=== PATIENT | male | born 1980 | race American Indian/Alaskan Native ===

== ENCOUNTER 2021-11-15 15:10 | Inpatient (IN) ==
--- NOTE | 2021-11-15 15:25 | Emergency Department Note ---
HPI General Chief complaint: Blood Sugar Problem Stated complaint: DKA Time Seen by Provider: 11/15/21 15:25 Source: patient Mode of arrival: ambulatory Limitations: no limitations History of Present Illness HPI Narrative: 41-year-old male with past medical history of chronic pancreatitis, type 2 diabetes, and hypertension presenting with abdominal pain, nausea, and vomiting. Over the last 3 days patient has had multiple episodes of vomiting with diffuse abdominal cramping and some diarrhea. He has a history of type 2 diabetes and is supposed to be on Lantus and short acting insulin but has not been taking it regularly. He has not checked his blood sugar recently. No fever, cough, chest pain, shortness of breath, dysuria, hematuria, or melena. Patient states he has been in DKA in the past. Family reports he was supposed to have surgery to remove his pancreas given his pancreatic insufficiency but has not been able to get the surgery because of Covid. No sick contacts or recent travel. Related Data Home Medications Medication Instructions Recorded Confirmed insulin aspart U-100 100 unit/mL See Protocol SQ 09/28/18 subcutaneous solution (Novolog U-100 Insulin aspart) insulin glargine 100 unit/mL 12 units SQ DAILY 09/28/18 09/28/18 subcutaneous solution (Lantus U-100 Insulin) [id number] 2 ea PO TID 09/28/18 09/28/18 12,000-38,000-60,000 unit capsule,delayed rel (Creon) Previous Rx's Medication Instructions Recorded hydrocodone 5 mg-acetaminophen 325 1 tab PO Q4-6HP PRN #14 tab 09/30/18 mg tablet ondansetron 8 mg disintegrating 8 mg PO Q8HP PRN #30 tab.rapdis 09/30/18 tablet potassium, sodium phosphates 280 1 packet PO BID #10 packet 09/30/18 mg-160 mg-250 mg oral powder packet methocarbamol 750 mg tablet 750 mg PO TIDP PRN #45 tab 05/11/20 Allergies Allergy/AdvReac Type Severity Reaction Status Date / Time No Known Drug Allergies Allergy Verified 05/11/20 16:28 Review of Systems ROS ROS Narrative: Narrative: Constitutional: Denies fever or chills Eyes: Denies vision change ENT ED: Denies throat pain Cardiovascular: Denies chest pain or palpitations Respiratory: Denies shortness of breath or cough Gastrointestinal: Reports abdominal pain, nausea, vomiting and diarrhea; Denies melena Genitourinary: Denies dysuria or frequency Musculoskeletal: Denies back pain or joint swelling Integumentary: Denies rash Neurological: Denies headache Psychiatric: Denies anxiety Endocrine: Reports fatigue Hematological/Lymphatic: Denies easy bleeding PFSH Narrative Patient History Narrative: Narrative: Medical/Surgical/Family History All Active Problems (Updated 11/15/21 @ 17:42 by Ady Connolly MD) Contusion of hip, right (Acute) Felon of finger of right hand (Acute) Hyperglycemia (Acute) Hyperosmolar hyperglycemic state (HHS) (Acute) ORLIN (acute kidney injury) (Acute) Leukocytosis (Acute) Chronic pancreatitis (Chronic) Other specified diabetes mellitus without complications (Chronic) Hypertension (Chronic) Exocrine pancreatic insufficiency (Chronic) Medical History (Updated 11/15/21 @ 17:42 by Ady Connolly MD) Chronic pancreatitis DKA (diabetic ketoacidoses) Exocrine pancreatic insufficiency Hypertension Other specified diabetes mellitus without complications Social History Smoking Status: Current every day smoker Exam Narrative Narrative: Narrative: General Limitations: no limitations General appearance: Present alert and other (Appears uncomfortable) Head Head: Present atraumatic and normocephalic Eye Eye: Present normal appearance, PERRL and EOMI; Absent scleral icterus or conjunctival injection ENT ENT: Present mucous membranes dry and other (Poor dentition) Neck Neck: Present normal inspection, full ROM and trachea midline Chest Chest: Present symmetric chest wall rise Respiratory Respiratory: Present normal lung sounds bilaterally; Absent respiratory distress, wheezes, stridor, accessory muscle use or prolonged expiratory phase Cardiovascular Cardiovascular: Present regular rate and normal rhythm; Absent systolic murmur or diastolic murmur Adbominal Abdominal: Present soft and tenderness (Mild diffuse tenderness to palpation); Absent distention, guarding, rebound, rigidity, organomegaly or mass Extremities Extremities: Present normal inspection and full ROM; Absent pretibial edema Back Back: Absent CVA tenderness (R) or CVA tenderness (L) Neurological Neurological: Present alert, oriented X3 and CN II-XII intact; Absent motor sensory deficit Psychiatric Psychiatric: Present normal affect and normal mood Skin Skin: Present warm (WNL) and dry Course Consultations Consultation #1: Dr Loomis, hospitalist Time: 17:36 Vital Signs Vital signs: Vital Signs Temperature 95.1 F L 11/15/21 15:11 Pulse Rate 100 H 11/15/21 15:11 Respiratory Rate 22 11/15/21 15:11 Blood Pressure 102/65 11/15/21 15:11 Pulse Oximetry (%) 97 11/15/21 15:11 Temperature 95.1 F L 11/15/21 15:11 Pulse Rate 95 H 11/15/21 17:11 Respiratory Rate 22 11/15/21 15:11 Blood Pressure 129/83 11/15/21 17:15 Pulse Oximetry (%) 100 11/15/21 17:11 MDM MDM Narrative Medical decision making narrative: 41-year-old male presenting with nausea and vomiting. Initial glucose was greater than 600. Vital signs are stable. EKG shows no ischemic changes. Concern for dehydration and hyperglycemia versus DKA. Normal saline bolus ordered. Will obtain labs, chest x-ray, and UA. Labs notable for hyperglycemia to 1064, ORLIN, pH of 7.01, and lactate of 3.4. This is consistent with HHS/DKA. Potassium was high at 5.4. His bicarb is 5 and anion gap is 47. Ketones are 9.5. He does have a white blood cell count to 20.4. Patient was given 2 L normal saline, 10 units of IV insulin and started on insulin drip at 8 units/h. Given his abdominal pain and elevated white blood cell count, CT without contrast is ordered. His UA is pending. I discussed the patient with hospitalist Dr. Loomis for likely admission to the ICU pending his CT and UA results. Patient signed out to oncoming MD Dr. Echavarria. Lab Data Lab results reviewed: Yes I reviewed the patient's lab results. Result diagrams: 11/15/21 15:32 11/15/21 15:32 Labs: Lab Results 11/15/21 11/15/21 11/15/21 Range/Units 15:32 15:32 15:32 WBC 20.4 H (4.5-11.0) K/mcL RBC 5.89 (4.63-6.08) M/mcL Hgb 17.5 (13.7-17.5) g/dL Hct 56.3 H (40.1-51.0) % MCV 95.6 (80.0-100.0) fL MCH 29.7 (26.0-34.0) pg MCHC 31.1 (31.0-36.0) g/dL RDW 12.2 (11.5-14.5) % Plt Count 421 (140-440) K/mcL MPV 9.8 (7.4-10.4) fL Neut % (Auto) 88.7 H (38.0-78.0) % Lymph % (Auto) 4.9 L (15.5-49.0) % Maries % (Auto) 6.2 (1.0-12.0) % Eos % (Auto) 0 (0.0-7.0) % Baso % (Auto) 0.2 (0.0-2.0) % Lymph # (Auto) 1.00 L (1.50-4.80) K/mcL [place]ies # (Auto) 1.26 H (0.10-0.90) K/mcL Eos # (Auto) 0 (0.00-0.70) K/mcL Baso # (Auto) 0.05 (0.00-0.30) K/mcL Absolute Neutrophils 18.11 H (1.80-8.00) K/mcL ABG Methemoglobin (0.4-1.5) % VBG pH (7.32-7.42) U VBG pCO2 (41.0-51.0) mmHg VBG pO2 (25.0-40.0) mmHg VBG HCO3 (24.0-28.0) mmol/L VBG Total CO2 (25.0-29.0) mmol/L VBG O2 Saturation (40.0-70.0) % VBG Base Excess (-2-2) VBG Lactic Acid (0.5-2.0) mmol/L Carboxyhemoglobin (0.0-1.5) % THgb Total Hemoglobin (13.5-16.5) gm/Dl Sodium 126 L (133-145) mmol/L Potassium 5.4 H (3.3-5.1) mmol/L Chloride 74 L (96-108) mmol/L Carbon Dioxide 5 L* (22-30) mmol/L Anion Gap 47.0 H (8.0-16.0) BUN 60 H (6-20) mg/dL Creatinine 2.4 H (0.7-1.2) mg/dL GFR Calculation 32 Glucose 1064 H* (70-105) mg/dL Calcium 9.4 (8.6-10.4) mg/dL Magnesium 3.5 H (1.6-2.5) mg/dL Total Bilirubin 0.4 (0.1-1.0) mg/dL AST 17 (<40) U/L ALT 19 (<40) U/L Alkaline Phosphatase 180 H (39-117) U/L Total Protein 8.2 (5.9-8.4) gm/dL Albumin 4.4 (3.2-5.2) gm/dL Globulin 3.8 H (2.2-3.7) gm/dL Albumin/Globulin Ratio 1.2 (1.0-2.3) Lipase 471 H (7-60) U/L Beta-Hydroxybutyrate 9.57 H (<0.27) mmol/L 11/15/21 11/15/21 Range/Units 16:00 16:00 WBC (4.5-11.0) K/mcL RBC (4.63-6.08) M/mcL Hgb (13.7-17.5) g/dL Hct (40.1-51.0) % MCV (80.0-100.0) fL MCH (26.0-34.0) pg MCHC (31.0-36.0) g/dL RDW (11.5-14.5) % Plt Count (140-440) K/mcL MPV (7.4-10.4) fL Neut % (Auto) (38.0-78.0) % Lymph % (Auto) (15.5-49.0) % Maries % (Auto) (1.0-12.0) % Eos % (Auto) (0.0-7.0) % Baso % (Auto) (0.0-2.0) % Lymph # (Auto) (1.50-4.80) K/mcL Maries # (Auto) (0.10-0.90) K/mcL Eos # (Auto) (0.00-0.70) K/mcL Baso # (Auto) (0.00-0.30) K/mcL Absolute Neutrophils (1.80-8.00) K/mcL ABG Methemoglobin 0.1 L (0.4-1.5) % VBG pH 7.01 L* (7.32-7.42) U VBG pCO2 19.5 L* (41.0-51.0) mmHg VBG pO2 76.9 H (25.0-40.0) mmHg VBG HCO3 4.8 L* (24.0-28.0) mmol/L VBG Total CO2 5.4 L* (25.0-29.0) mmol/L VBG O2 Saturation 88.8 H (40.0-70.0) % VBG Base Excess -25 L (-2-2) VBG Lactic Acid 3.4 H (0.5-2.0) mmol/L Carboxyhemoglobin 3.4 H (0.0-1.5) % THgb Total Hemoglobin 16.3 (13.5-16.5) gm/Dl Sodium (133-145) mmol/L Potassium (3.3-5.1) mmol/L Chloride (96-108) mmol/L Carbon Dioxide (22-30) mmol/L Anion Gap (8.0-16.0) BUN (6-20) mg/dL Creatinine (0.7-1.2) mg/dL GFR Calculation Glucose (70-105) mg/dL Calcium (8.6-10.4) mg/dL Magnesium (1.6-2.5) mg/dL Total Bilirubin (0.1-1.0) mg/dL AST (<40) U/L ALT (<40) U/L Alkaline Phosphatase (39-117) U/L Total Protein (5.9-8.4) gm/dL Albumin (3.2-5.2) gm/dL Globulin (2.2-3.7) gm/dL Albumin/Globulin Ratio (1.0-2.3) Lipase (7-60) U/L Beta-Hydroxybutyrate (<0.27) mmol/L Radiology Data Radiology results reviewed: Yes I reviewed the patient's radiology results. Radiology results narrative: Ordering Physician:Ady Connolly M.D. Date of Service:11/15/21 Procedure(s):XR chest 1V portable CLINICAL INFORMATION: Diabetic ketoacidosis COMPARISON: None. TECHNIQUE: PA and Lateral views FINDINGS: The heart size, mediastinum and pulmonary vessels are unremarkable. The lungs are clear. There are no effusions. The bones and soft tissues are within normal limits. IMPRESSION: Normal chest. Interpreted and Authenticated by: Pietro Martínez 11/15/21 EKG Data EKG #1: EKG attestation: Yes I reviewed and interpreted this EKG. and Yes There are no EKG findings of acute coronary syndrome EKG results narrative: Normal sinus rhythm at 95 bpm. Early repolarization present, no ST elevation or depression. Interpretation: no acute changes CC TIME Critical Care Time Critical Care Time: Yes Total Critical Care Time: 45 Attestation: I spent greater than 45 minutes of critical care time evaluating and treating this patient, excluding time for procedures. His critical care time was necessary to prevent life-threatening HHS/DKA. Discharge Plan Patient/Caregiver Discharge Instructions Pt seen by [facility] [facility] [employer]/PA only: No Clinical Impression: Hyperosmolar hyperglycemic state (HHS), ORLIN (acute kidney injury), Leukocytosis Patient Disposition: Xfer As Inpt (TS) Condition: Critical Follow up with: Provider,Other [Primary Care Provider] - Prescriptions: No Action insulin glargine [Lantus U-100 Insulin] 1 UNIT/0.01 ML Unit 12 units SQ DAILY 0RF insulin aspart U-100 [Novolog U-100 Insulin aspart] 100 UNIT/ML Vial See Protocol unit SQ 0RF Protocol: Insulin Sliding Scale, Med Condition: HUMALOG/NOVALOG SC SLIDING Dose/Route: SCALE Condition: FSBS < 70 Dose/Route: Give 4 Oz juice, or 15gm oral Instruction: Glucose, or 25ml D50W IV if Dose/Route: unable to take PO. Recheck in Instruction: 15 min and repeat if FSBS < 70 Condition: FSBS 71-140 Dose/Route: NO COVERAGE Condition: FSBS 141-170 Dose/Route: 2 UNITS Condition: FSBS 171-200 Dose/Route: 4 UNITS Condition: FSBS 201-250 Dose/Route: 6 UNITS Condition: FSBS 251-300 Dose/Route: 8 UNITS Condition: FSBS 301-350 Dose/Route: 10 UNITS Condition: FSBS 351-400 Dose/Route: 12 UNITS Condition: FSBS > 400 Dose/Route: 14 UNITS; REPEAT Q2H X2 Instruction: CONTINUE FOLLOWING SLIDING Condition: SCALE; IF STILL > 400; CALL Dose/Route: PHYSICIAN Rx Instructions: per sliding scale [id number]-tmsoeoxm-lcnngbo [Creon] [address] E[address]aps[address] 2 ea PO TID 0RF ondansetron 8 MG tablet,disintegrating 8 mg PO Q8HP PRN (Reason: Nausea) Qty: 30 0RF hydrocodone-acetaminophen 1 TAB tablet 1 tab PO Q4-6HP PRN (Reason: Pain) Qty: 14 0RF potassium, sodium phosphates 1 PACKET packet 1 packet PO BID Qty: 10 0RF methocarbamol 750 MG tablet 750 mg PO TIDP PRN (Reason: muscle spasms) Qty: 45 0RF Rx Instructions: if needed increase to 1.5 or 2 tabs per dose.
[2021-11-15] MEDS ORDERED: 0.9 % SODIUM CHLORIDE 1,000 ML IV ONE ×2 (15:32→16:56)
[2021-11-15] MEDS ORDERED: morphine 4 MG/ML VIAL IV ONE (15:32)
[2021-11-15] MEDS ORDERED: ONDANSETRON 4 MG/2 ML VIAL IV ONE (15:32)
--- NOTE | 2021-11-15 16:20 | XRay Report ---
CLINICAL INFORMATION: Diabetic ketoacidosis COMPARISON: None. TECHNIQUE: PA and Lateral views FINDINGS: The heart size, mediastinum and pulmonary vessels are unremarkable. The lungs are clear. There are no effusions. The bones and soft tissues are within normal limits. IMPRESSION: Normal chest. Interpreted and Authenticated by: Pietro Martínez 11/15/21
[2021-11-15 16:25] LABS: Basophils # (Auto) 0.05 K/mcL (0.00-0.30); Basophils % (Auto) 0.2 % (0.0-2.0); Eosinophils # (Auto) 0 K/mcL (0.00-0.70); Eosinophils % (Auto) 0 % (0.0-7.0); Hematocrit 56.3 % (40.1-51.0); Hemoglobin 17.5 g/dL (13.7-17.5); Lymphocytes % (Auto) 4.9 % (15.5-49.0); Mean Cell Volume 95.6 fL (80.0-100.0); Mean Corpuscular HGB Conc 31.1 g/dL (31.0-36.0); Mean Platelet Volume 9.8 fL (7.4-10.4); Monocytes # (Auto) 1.26 K/mcL (0.10-0.90); Monocytes % (Auto) 6.2 % (1.0-12.0); Neutrophils % (Auto) 88.7 % (38.0-78.0); Platelet Count 421 K/mcL (140-440); RBC 5.89 M/mcL (4.63-6.08); Red Cell Distribution Width 12.2 % (11.5-14.5); WBC 20.4 K/mcL (4.5-11.0)
[2021-11-15 16:32] LABS: ABG Methemoglobin 0.1 % (0.4-1.5); Total Hemoglobin 16.3 gm/Dl (13.5-16.5); VBG Base Excess -25 (-2-2); VBG HCO3 4.8 mmol/L (24.0-28.0); VBG Oxygen Saturation 88.8 % (40.0-70.0); VBG PCO2 19.5 mmHg (41.0-51.0); VBG PH 7.01 U (7.32-7.42); VBG PO2 76.9 mmHg (25.0-40.0); VBG Total CO2 5.4 mmol/L (25.0-29.0)
[2021-11-15 17:01] LABS: ALT/SGPT 19 U/L (<40); AST/SGOT 17 U/L (<40); Albumin 4.4 gm/dL (3.2-5.2); Albumin/Globulin Ratio 1.2 (1.0-2.3); Alkaline Phosphatase 180 U/L (39-117); Bilirubin,Total 0.4 mg/dL (0.1-1.0); Blood Urea Nitrogen 60 mg/dL (6-20); Calcium 9.4 mg/dL (8.6-10.4); Carbon Dioxide 5 mmol/L (22-30); Chloride 74 mmol/L (96-108); Globulin 3.8 gm/dL (2.2-3.7); Glomerular Filtration Rate 32; Glucose 1064 mg/dL (70-105)
[2021-11-15] MEDS ORDERED: INSULIN REGULAR, HUMAN 1 UNIT/0.01 ML UNIT IV ONE ×2 (17:05→21:11)
[2021-11-15 17:29] LABS: Beta Hydroxybutyrate 9.57 mmol/L (<0.27)
[2021-11-15] MEDS: INSULIN REGULAR, HUMAN 50 UNIT in 0.9 % SODIUM CHLORIDE 99.5 ML IV SCH ×2 (17:55→23:39)
--- NOTE | 2021-11-15 18:39 | Cat Scan Report ---
CLINICAL INFORMATION: Abdominal pain and leukocytosis. COMPARISON: None. TECHNIQUE: 0.625 mm helical slices were obtained from the mid heart through the subtrochanteric regions. Following reconstruction, 2.5 mm sagittal, coronal and axial reformatted images were processed and reviewed at bone and soft tissue windows.The exam was performed using radiation dose optimization techniques including, but not limited to, automated exposure control, adjustment of the mA and/or kV according to patient size and use of iterative reconstruction technique. FINDINGS: The lung bases are clear. No effusions. The visualized heart is grossly normal. Abdominal images show the gallbladder is surgically absent. The bile ducts, liver, both kidneys, adrenal glands, spleen, and aorta, are normal in size, configuration and attenuation without focal lesion. There appears be mild inflammatory stranding of peripancreatic fat in the body and tail region which could indicate pancreatitis. Visualization is limited without use of intravenous contrast. There is no free air, free fluid or adenopathy. Pelvic images show normal noncontrasted urinary bladder. Prostate seminal vesicles are unremarkable. The stomach, small bowel, appendix region and large bowel are grossly normal. Bone windows show no osseous abnormality. IMPRESSION: Findings suggestive of simple acute interstitial pancreatitis involving the body and tail. Please correlate amylase and lipase. There is no necrosis, abscess or other complication. Interpreted and Authenticated by: Pietro Martínez 11/15/21
--- NOTE | 2021-11-15 19:22 | Internal Med History&Physical ---
HPI History of Present Illness Patient information: Note initiated : 11/15/21 at 7:01 pm Service Date, if different from initiated Date: [] Patient: Tashi Ruiz a 41 y/o M admitted on for DKA. Chief Complaint: [nausea, vomiting, abdominal pain] Chief complaint: nausea, vomiting, abdominal pain History of present illness: Mr. Ruiz is a 41 year old M history of type 2 diabetes, chronic pancreatitis, presenting with 3-day history of nausea, vomiting, and diffuse severe sharp abdominal pain. He runs out of insulin for at least 2 weeks. Over the past 3 days, he is committing of nausea, nonbloody nonbilious vomiting, and diffuse, severe, sharp abdominal pain in all quadrants. Due to his symptoms, he could not tolerate much oral intakes. He presented to our ED for further evaluations. Vital signs upon ED presentation were largely within normal limits. Labs significant for a white count of 20.4. ABG with pH 7.01, PCO2 19.5, PO2 76.9, bicarb 4.8. Serum sodium level 126, corrected 149, serum glucose 1064. Serum Cr level 2.4. Beta hydroxybutyrate 9.57. CT abdomen w/o contrast showing simple acute interstitial pancreatitis. Constitutional Constitutional: Present weakness; Absent chills, excessive sweating, fatigue or fever(s) EENT Eyes: Absent blurry vision, change in vision, loss of vision or other visual disturbances Ears: Absent decreased hearing or tinnitus Nose, mouth and throat: Absent abnormal hearing, dry mouth, headache(s), nasal congestion or sore throat Cardiovascular Cardiovascular: Absent chest pain, chest pain at rest, edema, irregular heart rhythm or palpatations Respiratory Respiratory: Absent cough, dyspnea or wheezing Gastrointestinal Gastrointestinal: Present abdominal pain, nausea and vomiting; Absent constipation or diarrhea Musculoskeletal Musculoskeletal: Absent back pain, deformity, limited range of motion, muscle cramps, muscle weakness or numbness Integumentary Integumentary: Absent lesions, rash or wounds Neurological Neurological: Absent focal weakness, headache(s) or numbness Psychiatric Psychiatric: Absent anxiety, depression or hallucinations PFSH PFSH All Active Problems (Updated 11/15/21 @ 19:16 by Luis Loomis MD) Stage 2 acute kidney injury (Acute) Hyperkalemia (Acute) Acute on chronic pancreatitis (Acute) Contusion of hip, right (Acute) Felon of finger of right hand (Acute) Hyperglycemia (Acute) Hyperosmolar hyperglycemic state (HHS) (Acute) ORLIN (acute kidney injury) (Acute) Leukocytosis (Acute) Chronic pancreatitis (Chronic) Other specified diabetes mellitus without complications (Chronic) Hypertension (Chronic) Exocrine pancreatic insufficiency (Chronic) Medical History (Updated 11/15/21 @ 19:16 by Luis Loomis MD) Chronic pancreatitis DKA (diabetic ketoacidoses) Exocrine pancreatic insufficiency Hypertension Other specified diabetes mellitus without complications MEDS/ALLERGIES Home Medications and Allergies Home Medications Medication Instructions Recorded Confirmed Type insulin aspart U-100 100 unit/mL See Protocol SQ 09/28/18 History subcutaneous solution (Novolog U-100 Insulin aspart) insulin glargine 100 unit/mL 12 units SQ DAILY 09/28/18 09/28/18 History subcutaneous solution (Lantus U-100 Insulin) [id number]-hgzlqzna-bjnanoq 2 ea PO TID 09/28/18 09/28/18 History 12,000-38,000-60,000 unit capsule,delayed rel (Creon) hydrocodone 5 mg-acetaminophen 325 1 tab PO Q4-6HP PRN #14 tab 09/30/18 Rx mg tablet ondansetron 8 mg disintegrating 8 mg PO Q8HP PRN #30 tab.rapdis 09/30/18 Rx tablet potassium, sodium phosphates 280 1 packet PO BID #10 packet 09/30/18 Rx mg-160 mg-250 mg oral powder packet methocarbamol 750 mg tablet 750 mg PO TIDP PRN #45 tab 05/11/20 Rx Allergies Allergy/AdvReac Type Severity Reaction Status Date / Time No Known Drug Allergies Allergy Verified 05/11/20 16:28 EXAM Constitutional Vitals: Temp Pulse Resp BP Pulse Ox 35.1 C L 95 H 22 111/70 100 11/15/21 15:11 11/15/21 17:11 11/15/21 15:11 11/15/21 17:45 11/15/21 17:11 General appearance: cooperative, mild distress and thin Head Head exam: Present atraumatic and normocephalic Eye Eye exam: Present EOMI and PERRL ENT ENT exam: Present mucous membranes moist, normal exam and normal external ear exam Expanded ENT Exam Teeth exam: Present dental caries Neck Neck exam: Present normal inspection; Absent lymphadenopathy, tenderness or thyromegaly Respiratory Respiratory exam: Absent accessory muscle use, respiratory distress or wheezes Cardiovascular Cardiovascular exam: Present normal rate and rhythm; Absent JVD GI/Abdominal GI/Abdominal exam: Present normal bowel sounds, soft and tenderness; Absent organomegaly Additional comments: positive guarding tenderness; negative rebound tenderness Rectal Rectal exam: Present deferred Extremities Exam Extremities exam: Present full ROM, normal capillary refill and normal inspection; Absent tenderness Neurological Exam Neurological exam: Present alert, CN II-XII intact and oriented X3; Absent motor sensory deficit Psychiatric Psychiatric exam: Present normal affect and normal mood; Absent anxious or depressed Skin Skin exam: Present dry and intact DATA Data Completed and Pending Labs: Labs from last 24 hours 11/15/21 11/15/21 11/15/21 16:00 16:00 15:32 WBC RBC Hgb Hct MCV MCH MCHC RDW Plt Count MPV Neut % (Auto) Lymph % (Auto) [place] % (Auto) Eos % (Auto) Baso % (Auto) Lymph # (Auto) [place] # (Auto) Eos # (Auto) Baso # (Auto) Absolute Neutrophils ABG Methemoglobin 0.1 L VBG pH 7.01 L* VBG pCO2 19.5 L* VBG pO2 76.9 H VBG HCO3 4.8 L* VBG Total CO2 5.4 L* VBG O2 Saturation 88.8 H VBG Base Excess -25 L VBG Lactic Acid 3.4 H Carboxyhemoglobin 3.4 H Total Hemoglobin 16.3 Sodium Potassium Chloride Carbon Dioxide Anion Gap BUN Creatinine GFR Calculation Glucose Calcium Magnesium 3.5 H Total Bilirubin AST ALT Alkaline Phosphatase Total Protein Albumin Globulin Albumin/Globulin Ratio Lipase Beta-Hydroxybutyrate 11/15/21 11/15/21 15:32 15:32 WBC 20.4 H RBC 5.89 Hgb 17.5 Hct 56.3 H MCV 95.6 MCH 29.7 MCHC 31.1 RDW 12.2 Plt Count 421 MPV 9.8 Neut % (Auto) 88.7 H Lymph % (Auto) 4.9 L [place] % (Auto) 6.2 Eos % (Auto) 0 Baso % (Auto) 0.2 Lymph # (Auto) 1.00 L [place] # (Auto) 1.26 H Eos # (Auto) 0 Baso # (Auto) 0.05 Absolute Neutrophils 18.11 H ABG Methemoglobin VBG pH VBG pCO2 VBG pO2 VBG HCO3 VBG Total CO2 VBG O2 Saturation VBG Base Excess VBG Lactic Acid Carboxyhemoglobin Total Hemoglobin Sodium 126 L Potassium 5.4 H Chloride 74 L Carbon Dioxide 5 L* Anion Gap 47.0 H BUN 60 H Creatinine 2.4 H GFR Calculation 32 Glucose 1064 H* Calcium 9.4 Magnesium Total Bilirubin 0.4 AST 17 ALT 19 Alkaline Phosphatase 180 H Total Protein 8.2 Albumin 4.4 Globulin 3.8 H Albumin/Globulin Ratio 1.2 Lipase 471 H Beta-Hydroxybutyrate 9.57 H A/P Assessment and plan (1) DKA (diabetic ketoacidoses): Status: Resolved Qualifiers: Diabetes mellitus complication detail: without coma Diabetes mellitus type: type 1 Qualified Code(s): E10.10 - Type 1 diabetes mellitus with ketoacidosis without coma (2) Acute on chronic pancreatitis: Status: Acute (3) Hyperkalemia: Status: Acute (4) Stage 2 acute kidney injury: Status: Acute Narrative A/P Narrative: Assessment and Plans: 1. 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 Acute on chronic pancreatitis: IV fluid resuscitation, see #1 NPO [place] PRN moderate pain Morphine IV PRN severe pain Zofran IV PRN nausea vomiting Pancreatic enzymes replacement 3. Hyperkalemia: Insulin drip according to DKA protocol 1/2NS@250cc/hr when anion gap is elevated (>14) and glucose>200 (no added KCL due to serum potassium level of 5.4) D5 1/2NS w/ KCL 20mEq @250cc/hr when anion gap is elevated (>14) and glucose>200 (with added KCL since by that time serum potassium will most likely fall with the insulin drip) BMP q6hr 4. Stage 2 acute kidney injury: Unknown baseline serum Cr level, 2.4 at admission Avoid nephrotoxic agents 1/2NS@250cc/hr when anion gap is elevated (>14) and glucose>200 (no added KCL due to serum potassium level of 5.4) D5 1/2NS w/ KCL 20mEq @250cc/hr when anion gap is elevated (>14) and glucose>200 (with added KCL since by that time serum potassium will most likely fall with the insulin drip) BMP q6hr to trend kidney functions GI ppx: not currently indicated DVT ppx: Heparin Code status: Full Prognosis: Extremely guarded Disposition: inpatient ICU telemetry Critical Care Time: 1hr Time Spent With Patient Time: Total time spent is greater than 50% in coordination of care (as documented) at patient's floor/unit and/or counseling patient: Total time spent with greater than 50% in coordination of care (as documented) at patient's floor/unit and/or counseling patient:: Greater than 35 minutes
[2021-11-15] MEDS ORDERED: METHOCARBAMOL 750 MG TABLET PO PRN (20:04)
[2021-11-15] MEDS ORDERED: HYDROcodone/APAP (PP) 5/325MG TABLET (#4) PO PRN (20:04)
[2021-11-15] MEDS ORDERED: ACETAMINOPHEN 325 MG TABLET PO PRN (20:04)
[2021-11-15] MEDS ORDERED: IPRATROPIUM/ALBUTEROL 3 ML AMPUL.NEB NEB PRN (20:04)
[2021-11-15 20:21] LABS: Appearance,Urine CLEAR (Clear); Bilirubin,Urine Negative (Negative); Color,Urine STRAW; Culture Indicated,Urine No; Glucose,Urine (UA) >=500 mg/dL (Negative); Ketones,Urine 80 mg/dL (Negative); Leukocyte Esterase,Urine Negative /uL (Negative); Mucus,Urine FEW /hpf; Nitrate,Urine Negative (Negative); Protein,Urine Negative (Negative); Specific Gravity,Urine 1.021 (1.000-1.035); Urine Blood 0.03 mg/dL (Negative); Urine Granular Cast 4 /lph (0-0); Urine Hyaline Cast 3 /lph (0-2); Urine RBC 0 /hpf (0-3); Urine Squamous Epithelial Cell 0 /hpf (0-4); Urine WBC < 1 /hpf (0-4); Urobilinogen,Urine Negative
[2021-11-15] MEDS: 0.45 % SODIUM CHLORIDE 1,000 ML IV SCH (20:58)
[2021-11-15] MEDS: INSULIN REGULAR, HUMAN 1 UNIT/0.01 ML UNIT IV PRN ×3 (21:00→23:05)
[2021-11-15] MEDS: DEXTROSE 5%-1/2NS W/20MEQ KCL 1,000 ML IV SCH (21:02)
[2021-11-15] MEDS: morphine 4 MG/ML VIAL IV PRN (21:15)
[2021-11-15] MEDS ORDERED: INSULIN REGULAR, HUMAN 1 UNIT/0.01 ML UNIT ONE ×3 (21:20→23:40)
[2021-11-15 21:36] LABS: Blood Urea Nitrogen 57 mg/dL (6-20); Calcium 8.2 mg/dL (8.6-10.4); Carbon Dioxide 8 mmol/L (22-30); Chloride 91 mmol/L (96-108); Glomerular Filtration Rate 43; Glucose 644 mg/dL (70-105)
[2021-11-15] MEDS: LIPASE/PROTEASE/AMYLASE 1 CAP CAPSULE PO SCH (22:02)
[2021-11-15] MEDS: DOCUSATE SODIUM 100 MG CAPSULE PO SCH (22:02)
[2021-11-15] MEDS: HEPARIN 5,000 UNIT/ML VIAL SQ SCH (22:18)
[2021-11-15] MEDS: 0.9 % SODIUM CHLORIDE 10 ML SYRINGE IV SCH (22:19)
[2021-11-15 22:34] LABS: Estimated Average Glucose(eAG) 306 mg/dL; Hemoglobin A1C 12.3 % Hgb (4.0-6.0)
[2021-11-16] MEDS: morphine 4 MG/ML VIAL IV PRN ×4 (00:10→10:28)
[2021-11-16] MEDS ORDERED: INSULIN REGULAR, HUMAN 1 UNIT/0.01 ML UNIT ONE ×3 (00:23→03:11)
[2021-11-16] MEDS: 0.45 % SODIUM CHLORIDE 1,000 ML IV SCH ×3 (00:58→12:32)
[2021-11-16] MEDS: INSULIN REGULAR, HUMAN 1 UNIT/0.01 ML UNIT IV PRN ×2 (01:00)
[2021-11-16] MEDS: DEXTROSE 5%-1/2NS W/20MEQ KCL 1,000 ML IV SCH ×4 (03:01→11:20)
[2021-11-16] MEDS: INSULIN REGULAR, HUMAN 50 UNIT in 0.9 % SODIUM CHLORIDE 99.5 ML IV SCH ×2 (03:20→07:12)
[2021-11-16 04:04] LABS: Blood Urea Nitrogen 41 mg/dL (6-20); Calcium 8.2 mg/dL (8.6-10.4); Carbon Dioxide 18 mmol/L (22-30); Chloride 104 mmol/L (96-108); Glomerular Filtration Rate 57; Glucose 260 mg/dL (70-105)
[2021-11-16] MEDS: 0.9 % SODIUM CHLORIDE 10 ML SYRINGE IV SCH ×3 (06:02→21:09)
[2021-11-16] MEDS: ONDANSETRON 4 MG/2 ML VIAL IV PRN ×3 (07:15→21:39)
[2021-11-16 07:27] LABS: Basophils # (Auto) 0.02 K/mcL (0.00-0.30); Basophils % (Auto) 0.2 % (0.0-2.0); Eosinophils # (Auto) 0 K/mcL (0.00-0.70); Eosinophils % (Auto) 0 % (0.0-7.0); Hematocrit 39.7 % (40.1-51.0); Hemoglobin 14.3 g/dL (13.7-17.5); Lymphocytes # (Auto) 1.09 K/mcL (1.50-4.80); Lymphocytes % (Auto) 8.9 % (15.5-49.0); Mean Cell Volume 81.5 fL (80.0-100.0); Monocytes # (Auto) 0.66 K/mcL (0.10-0.90); Monocytes % (Auto) 5.4 % (1.0-12.0); Neutrophils % (Auto) 85.5 % (38.0-78.0); Platelet Count 194 K/mcL (140-440); RBC 4.87 M/mcL (4.63-6.08); WBC 12.2 K/mcL (4.5-11.0)
[2021-11-16 08:10] LABS: ALT/SGPT 11 U/L (<40); AST/SGOT 12 U/L (<40); Albumin 3.2 gm/dL (3.2-5.2); Albumin/Globulin Ratio 1.3 (1.0-2.3); Alkaline Phosphatase 106 U/L (39-117); Bilirubin,Total 0.2 mg/dL (0.1-1.0); Blood Urea Nitrogen 33 mg/dL (6-20); Calcium 8.3 mg/dL (8.6-10.4); Carbon Dioxide 21 mmol/L (22-30); Chloride 110 mmol/L (96-108); Globulin 2.4 gm/dL (2.2-3.7); Glomerular Filtration Rate 82; Glucose 209 mg/dL (70-105)
[2021-11-16] MEDS: LIPASE/PROTEASE/AMYLASE 1 CAP CAPSULE PO SCH ×3 (10:19→17:17)
[2021-11-16] MEDS: DOCUSATE SODIUM 100 MG CAPSULE PO SCH ×2 (10:22→20:43)
[2021-11-16] MEDS: HEPARIN 5,000 UNIT/ML VIAL SQ SCH (10:22)
[2021-11-16] MEDS: SENNOSIDES 1 TABLET PO SCH (10:23)
[2021-11-16] MEDS ORDERED: DEXTROSE 50% 50 ML VIAL IV PRN (11:16)
[2021-11-16] MEDS ORDERED: DEXTROSE 31 GM ORAL.SUSP PO PRN (11:16)
--- NOTE | 2021-11-16 11:21 | Internal Med Progress Note ---
SUBJECTIVE Subjective Patient information: Note initiated : 11/16/21 at 11:18 am Service Date, if different from initiated Date: [] Patient: Tashi Ruiz 41 y/o M admitted on 11/15/21 for DKA. Chief Complaint: [DKA] Principal diagnosis: DKA Interval history: Mr. Ruiz is a 41 year old M history of type 2 diabetes, chronic pancreatitis, presenting with 3-day history of nausea, vomiting, and diffuse severe sharp abd ominal pain. He runs out of insulin for at least 2 weeks. Over the past 3 days, he is committing of nausea, nonbloody nonbilious vomiting, and diffuse, severe, sharp abdominal pain in all quadrants. Due to his symptoms, he could not tolerate much oral intakes. He presented to our ED for further evaluations. Vital signs upon ED presentation were largely within normal limits. Labs significant for a white count of 20.4. ABG with pH 7.01, PCO2 19.5, PO2 76.9, bicarb 4.8. Serum sodium level 126, corrected 149, serum glucose 1064. Serum Cr level 2.4. Beta hydroxybutyrate 9.57. CT abdomen w/o contrast showing simple acute interstitial pancreatitis. 11/16: Anion gap 11. Serum bicarb 21. Blood glucose 209. c/o nausea. c/o 8/10 diffuse constant sharp abdominal pain. Still on insulin drip and D5 1/2NS w/ KCL IV fluid. Still NPO. Will transition to SQ insulin therapy now that the anion gap is closed. Constitutional Vitals: Vital Signs Temp Pulse Resp BP Pulse Ox 36.6 C 75 9 L 114/80 100 11/16/21 08:01 11/16/21 08:01 11/16/21 08:01 11/16/21 08:01 11/16/21 08:01 Period Temp Pulse Resp BP Sys/[place] Pulse Ox Last 24 Hr 35.1 C-36.6 C 75-105 9-38 92-131/57-88 97-100 Intake and Output 11/15/21 11/16/21 11/16/21 21:59 05:59 13:59 Intake Total 2054 1677 1173 Output Total 701 900 875 Balance 1353 777 298 Weight 62.596 kg Intake & Output: Intake & Output 11/15/21 11/16/2121 21:59 05:59 13:59 Intake Total 2053 1676 1173 Output Total 701 900 875 Balance 1353 777 298 Weight 62.[place]: [place] [address] 1173 Sodium Chloride 0.45% 1,000 ml 1521 @ 250 mls/hr IV .Q4H [facility] Rx#: [id number] Sodium Chloride 0.9% 1,000 ml @ 2000 Wide Open IV BOLUS ONE Rx#: [id number] Dextrose 5%-1/2Ns W/20Meq KCl 1 1000 ,000 ml @ 250 mls/hr IV .Q4H [facility] Rx#:[id number] HumuLIN R 50 UNIT In Sodium 54 156 173 Chloride 0.9% 99.5 ml @ 8 UNIT/ HR 16 mls/hr IV DUR [facility] Rx#: [id number] Output: Urine Catheter Amount 875 Void Amount 700 900 # of times incontinent of urine 1 Other: Urine Appearance Clear Clear Clear Uretheral (Parks) Clear Clear Urine Color Bright Yellow Pale Bright Yellow Uretheral (Parks) Pale Bright Yellow Urine Odor Normal General appearance: cooperative, no acute distress and thin Head Head exam: Present atraumatic and normal inspection Eye Eye exam: Present normal appearance ENT ENT exam: Present mucous membranes moist, normal exam and normal external ear exam Neck Neck exam: Present normal inspection Respiratory Respiratory exam: Present normal respiratory exam Cardiovascular Cardiovascular exam: Present normal rate and rhythm GI/Abdominal GI/Abdominal exam: Present normal bowel sounds, guarding and tenderness Back Exam Back exam: Present normal inspection Neurological Exam Neurological exam: Present alert and oriented X3 Skin Skin exam: Present intact and warm OBJ DATA Labs CBC & Chem 7: 11/16/21 05:25 11/16/21 05:25 Labs: Abnormal Lab Results 11/16/21 11/16/21 11/16/21 05:25 05:25 02:00 WBC 12.2 H Hct 39.7 L Neut % (Auto) 85.5 H Lymph % (Auto) 8.9 L Lymph # (Auto) 1.09 L [place] # (Auto) Absolute Neutrophils 10.41 H ABG Methemoglobin VBG pH VBG pCO2 VBG pO2 VBG HCO3 VBG Total CO2 VBG O2 Saturation VBG Base Excess VBG Lactic Acid Carboxyhemoglobin Sodium Potassium Chloride 110 H Carbon Dioxide 21 L 18 L Anion Gap 19.0 H BUN 33 H 41 H Creatinine 1.5 H Glucose 209 H 260 H Hemoglobin A1c Calcium 8.3 L 8.2 L Phosphorus 1.0 L Magnesium Alkaline Phosphatase Total Protein 5.6 L Globulin Lipase Beta-Hydroxybutyrate Urine Glucose (UA) Urine Ketones Hyaline Casts Granular Casts Urine Mucus 11/15/21 11/15/21 11/15/21 20:17 19:47 16:00 WBC Hct Neut % (Auto) Lymph % (Auto) Lymph # (Auto) [place] # (Auto) Absolute Neutrophils ABG Methemoglobin 0.1 L VBG pH 7.01 L* VBG pCO2 19.5 L* VBG pO2 76.9 H VBG HCO3 4.8 L* VBG Total CO2 5.4 L* VBG O2 Saturation 88.8 H VBG Base Excess -25 L VBG Lactic Acid Carboxyhemoglobin 3.4 H Sodium Potassium Chloride 91 L Carbon Dioxide 8 L* Anion Gap 34.0 H BUN 57 H Creatinine 1.9 H Glucose 644 H* Hemoglobin A1c 12.3 H Calcium 8.2 L Phosphorus Magnesium Alkaline Phosphatase Total Protein Globulin Lipase 371 H Beta-Hydroxybutyrate Urine Glucose (UA) >=500 A Urine Ketones 80 A Hyaline Casts 3 H Granular Casts 4 H Urine Mucus Few A 11/15/21 11/15/21 11/15/21 16:00 15:32 15:32 WBC Hct Neut % (Auto) Lymph % (Auto) Lymph # (Auto) [place] # (Auto) Absolute Neutrophils ABG Methemoglobin VBG pH VBG pCO2 VBG pO2 VBG HCO3 VBG Total CO2 VBG O2 Saturation VBG Base Excess VBG Lactic Acid 3.4 H Carboxyhemoglobin Sodium 126 L Potassium 5.4 H Chloride 74 L Carbon Dioxide 5 L* Anion Gap 47.0 H BUN 60 H Creatinine 2.4 H Glucose 1064 H* Hemoglobin A1c Calcium Phosphorus Magnesium 3.5 H Alkaline Phosphatase 180 H Total Protein Globulin 3.8 H Lipase 471 H Beta-Hydroxybutyrate 9.57 H Urine Glucose (UA) Urine Ketones Hyaline Casts Granular Casts Urine Mucus 11/15/21 15:32 WBC 20.4 H Hct 56.3 H Neut % (Auto) 88.7 H Lymph % (Auto) 4.9 L Lymph # (Auto) 1.00 L [place] # (Auto) 1.26 H Absolute Neutrophils 18.11 H ABG Methemoglobin VBG pH VBG pCO2 VBG pO2 VBG HCO3 VBG Total CO2 VBG O2 Saturation VBG Base Excess VBG Lactic Acid Carboxyhemoglobin Sodium Potassium Chloride Carbon Dioxide Anion Gap BUN Creatinine Glucose Hemoglobin A1c Calcium Phosphorus Magnesium Alkaline Phosphatase Total Protein Globulin Lipase Beta-Hydroxybutyrate Urine Glucose (UA) Urine Ketones Hyaline Casts Granular Casts Urine Mucus Meds: Medications Acetaminophen (Acetaminophen 325 Mg Tablet) 650 mg PO Q4-6HP PRN; Protocol PRN Reason: Per Pain Protocol/Fever > 101 Hydrocodone Bitart/Acetaminophen (Hydrocodone/Apap 5/325mg Tablet) 1 tab PO Q4- 6HP PRN; Protocol PRN Reason: Per Pain Protocol Albuterol/Ipratropium (Ipratropium/Albuterol 3 Ml Ampul.Neb) 3 ml NEB Q4HRT PRN PRN Reason: Wheezing Lipase/Protease/Amylase (Lipase/Protease/Amylase 1 Cap Capsule) 2 cap PO TIDCC [facility] Last Admin: 11/16/21 10:19 Dose: 2 cap Documented by: Dextrose (Dextrose 50% 50 Ml Vial) 0 ml IV UD PRN PRN Reason: Hypoglycemia Diagnostic Test (Pha) (Accu-Chek 1 Each Strip) 1 each FS Q1 [facility] Last Admin: 11/16/21 11:11 Dose: 1 each Documented by: Diagnostic Test (Pha) (Accu-Chek 1 Each Strip) 1 each FS ACHS [facility] Docusate Sodium (Docusate Sodium 100 Mg Capsule) 100 mg PO BID [facility] Last Admin: 11/16/21 10:22 Dose: 100 mg Documented by: Glucose (Dextrose 31 Gm Oral.Susp) 15 gm PO PRN PRN PRN Reason: Hypoglycemia Heparin Sodium (Porcine) (Heparin 5,000 Unit/Ml Vial) 5,000 unit SQ Q12 [facility] Last Admin: 11/16/21 10:22 Dose: 5,000 unit Documented by: Insulin Human Regular 50 unit/ (Sodium Chloride) 100 mls @ 16 mls/hr IV DUR [facility]; Protocol Last Titration: 11/16/21 11:11 Dose: 5 unit/hr, 10 mls/hr Documented by: Sodium Chloride (Sodium Chloride 0.45%) 1,000 mls @ 250 mls/hr IV .Q4H [facility] Last Admin: 11/16/21 04:28 Dose: Not Given Documented by: Potassium Chloride/Dextrose/Sod Cl (Dextrose 5%-1/2ns W/20meq Kcl) 1,000 mls @ 250 mls/hr IV .Q4H [facility] Last Admin: 11/16/21 07:05 Dose: 250 mls/hr Documented by: Insulin Glargine (Insulin Glargine, Human 1 Unit/0.01 Ml) 12 unit SQ DAILY [facility] Insulin Human Lispro (Insulin Lispro 1 Unit/0.01 Ml Unit) 0 unit SQ ACHS [facility]; Protocol Insulin Human Regular (Insulin Regular, Human 1 Unit/0.01 Ml Unit) 6 unit IV PRN PRN PRN Reason: Blood Sugar - High Last Admin: 11/16/21 01:00 Dose: 6 unit Documented by: Methocarbamol (Methocarbamol 750 Mg Tablet) 750 mg PO TIDP PRN PRN Reason: muscle spasms Morphine Sulfate (Morphine 4 Mg/Ml Vial) 4 mg IV Q2HP PRN; Protocol PRN Reason: Per Pain Protocol Last Admin: 11/16/21 10:28 Dose: 4 mg Documented by: Ondansetron HCl (Ondansetron 4 Mg/2 Ml Vial) 4 mg IV Q4HP PRN PRN Reason: Nausea And Vomiting Last Admin: 11/16/21 07:15 Dose: 4 mg Documented by: Senna (Sennosides 1 Tablet) 1 tab PO DAILY [facility] Last Admin: 11/16/21 10:23 Dose: Not Given Documented by: Sodium Chloride (0.9 % Sodium Chloride 10 Ml Syringe) 10 ml IV Q8 [facility] Last Admin: 11/16/21 06:02 Dose: Not Given Documented by: ABG Interpretation ABG results: 11/15/21 16:00 ABG Methemoglobin 0.1 L VBG pH 7.01 L* VBG pCO2 19.5 L* VBG pO2 76.9 H VBG HCO3 4.8 L* VBG Total CO2 5.4 L* VBG O2 Saturation 88.8 H VBG Base Excess -25 L A/P Assessment and plan (1) DKA (diabetic ketoacidoses): Status: Resolved Qualifiers: Diabetes mellitus complication detail: without coma Diabetes mellitus type: type 1 Qualified Code(s): E10.10 - Type 1 diabetes mellitus with ketoacidosis without coma (2) Acute on chronic pancreatitis: Status: Acute (3) Hyperkalemia: Status: Acute (4) Stage 2 acute kidney injury: Status: Acute Narrative A/P Narrative: Assessment and Plans: 1. 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 Acute on chronic pancreatitis: IV fluid resuscitation, see #1 Diabetic diet when insulin drip is stopped [place] PRN moderate pain Dilaudid IV PRN severe pain Zofran IV PRN nausea vomiting Pancreatic enzymes replacement 3. Hyperkalemia: RESOLVED 4. Stage 2 acute kidney injury: RESOLVED Unknown baseline serum Cr level, 2.4 at admission, now 1.1 IV fluid as per DKA and acute pancreatitis management, see #1 and #2 CMP daily to trend kidney functions Avoid nephrotoxic agents GI ppx: not currently indicated DVT ppx: Lovenox Code status: Full Prognosis: guarded Disposition: inpatient ICU telemetry Critical Care Time: 1hr Time Spent With Patient Time: Total time spent is greater than 50% in coordination of care (as documented) at patient's floor/unit and/or counseling patient: Total time spent with greater than 50% in coordination of care (as documented) at patient's floor/unit and/or counseling patient:: Greater than 35 minutes
[2021-11-16] MEDS: INSULIN GLARGINE, HUMAN 1 UNIT/0.01 ML SQ SCH (11:23)
[2021-11-16 11:48] LABS: Blood Urea Nitrogen 29 mg/dL (6-20); Calcium 8.2 mg/dL (8.6-10.4); Carbon Dioxide 23 mmol/L (22-30); Chloride 112 mmol/L (96-108); Glomerular Filtration Rate 93; Glucose 150 mg/dL (70-105)
[2021-11-16] MEDS: HYDROmorphone 1 MG/ML SYRINGE IV PRN ×3 (11:49→21:31)
[2021-11-16] MEDS: INSULIN LISPRO 1 UNIT/0.01 ML UNIT SQ SCH ×3 (12:21→20:48)
[2021-11-16] MEDS: 0.9 % SODIUM CHLORIDE 1,000 ML IV SCH ×3 (13:21→21:31)
[2021-11-16] MEDS: HYDROcodone/APAP 5/325MG TABLET PO PRN ×3 (14:11→23:19)
--- NOTE | 2021-11-16 14:28 | EKG ---
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 Measurements Intervals [place] Rate: 95 P: 65 PA: 137 QRS: 91 QRSD: 108 T: 24 QT: 384 QTc: 483 Interpretive Statements Sinus rhythm Borderline right axis deviation ST elevation suggests acute pericarditis Borderline prolonged QT interval Electronically Signed On 11-16-2021 14:28:19 PST by Pietro Lynn M.D. /[email or web address]/[id number]
[2021-11-16] MEDS ORDERED: POTASSIUM PHOSPHATE 20 MEQ in DEXTROSE 5% IN WATER 250 ML IV ONE (16:59)
[2021-11-16 21:07] LABS: Blood Urea Nitrogen 15 mg/dL (6-20); Calcium 8.4 mg/dL (8.6-10.4); Carbon Dioxide 22 mmol/L (22-30); Chloride 103 mmol/L (96-108); Glomerular Filtration Rate 105; Glucose 279 mg/dL (70-105)
[2021-11-17] MEDS: 0.9 % SODIUM CHLORIDE 1,000 ML IV SCH ×3 (01:04→09:48)
[2021-11-17] MEDS: ONDANSETRON 4 MG/2 ML VIAL IV PRN ×2 (01:37→09:55)
[2021-11-17] MEDS: HYDROmorphone 1 MG/ML SYRINGE IV PRN (02:30)
[2021-11-17] MEDS: 0.9 % SODIUM CHLORIDE 10 ML SYRINGE IV SCH (05:21)
[2021-11-17 06:57] LABS: ALT/SGPT 12 U/L (<40); AST/SGOT 17 U/L (<40); Albumin 2.8 gm/dL (3.2-5.2); Albumin/Globulin Ratio 1.3 (1.0-2.3); Alkaline Phosphatase 83 U/L (39-117); Bilirubin,Total 0.2 mg/dL (0.1-1.0); Blood Urea Nitrogen 9 mg/dL (6-20); Calcium 7.6 mg/dL (8.6-10.4); Carbon Dioxide 24 mmol/L (22-30); Chloride 103 mmol/L (96-108); Globulin 2.2 gm/dL (2.2-3.7); Glomerular Filtration Rate 117; Glucose 251 mg/dL (70-105); Phosphorous 1.1 mg/dL (2.5-4.5)
[2021-11-17] MEDS: HYDROcodone/APAP 5/325MG TABLET PO PRN (08:13)
[2021-11-17 08:16] LABS: Basophils # (Auto) 0.01 K/mcL (0.00-0.30); Basophils % (Auto) 0.2 % (0.0-2.0); Eosinophils # (Auto) 0.02 K/mcL (0.00-0.70); Eosinophils % (Auto) 0.4 % (0.0-7.0); Hematocrit 33.3 % (40.1-51.0); Hemoglobin 11.4 g/dL (13.7-17.5); Lymphocytes # (Auto) 0.97 K/mcL (1.50-4.80); Lymphocytes % (Auto) 17.8 % (15.5-49.0); Mean Cell Volume 84.1 fL (80.0-100.0); Mean Corpuscular HGB Conc 34.2 g/dL (31.0-36.0); Mean Platelet Volume 9.8 fL (7.4-10.4); Monocytes # (Auto) 0.23 K/mcL (0.10-0.90); Monocytes % (Auto) 4.2 % (1.0-12.0); Neutrophils % (Auto) 77.4 % (38.0-78.0); Platelet Count 96 K/mcL (140-440); RBC 3.96 M/mcL (4.63-6.08); Red Cell Distribution Width 12.8 % (11.5-14.5); WBC 5.4 K/mcL (4.5-11.0)
[2021-11-17] MEDS ORDERED: ENOXAPARIN 40 MG/0.4 ML SYRINGE SQ SCH (09:00)
[2021-11-17] MEDS: INSULIN GLARGINE, HUMAN 1 UNIT/0.01 ML SQ SCH (09:07)
[2021-11-17] MEDS: INSULIN LISPRO 1 UNIT/0.01 ML UNIT SQ SCH ×2 (09:07→11:24)
[2021-11-17] MEDS: SENNOSIDES 1 TABLET PO SCH (09:14)
--- NOTE | 2021-11-17 09:16 | Discharge Summary ---
Discharge Provider Provider Patient information: Note initiated : 11/17/21 at 9:14 am Service Date, if different from initiated Date: [] Patient: Tashi Ruiz 41 y/o M admitted on 11/15/21 for DKA. Chief Complaint: [] Date of admission: 11/15/21 20:00 Discharge date: 11/17/21 Primary care physician: Other Provider Attending physician on admission: Luis Loomis Consults: 11/15/21 Consult to Physician [CONS] Stat Comment: Consulting Provider: Luis Loomis Reason For Exam: Physician to Consult 11/15/21 17:42 Consult to Physician [CONS] Stat Comment: Consulting Provider: Luis Loomis Reason For Exam: Physician to Consult Attending physician on discharge: Luis Diaz Puzhang Discharge Meds Discharge Medications Home Medications potassium, sodium phosphates 280 mg-160 mg-250 mg oral powder packet 1 packet PO BID #10 packet 09/30/18 [Rx Confirmed 11/16/21 Last Taken Unknown] hydrocodone 10 mg-acetaminophen 325 mg tablet 1 tab PO Q4-6HP PRN #10 tab 11/17/21 [Rx Last Taken Unknown] insulin aspart U-100 100 unit/mL subcutaneous solution (Novolog U-100 Insulin aspart) See Protocol SQ ACHS 30 Days #10 ml 11/17/21 [Rx Last Taken Unknown] insulin glargine 100 unit/mL subcutaneous solution (Lantus U-100 Insulin) 12 unit (0.12 mL) SUBCUT DAILY #10 ml 11/17/21 [Rx Last Taken Unknown] yfwgpt-eipezwsu-mhivhul 12,000-38,000-60,000 unit capsule,delayed rel (Creon) 2 cap PO TID #30 cap 11/17/21 [Rx Last Taken Unknown] metformin 500 mg tablet 500 mg PO BID 30 Days #60 tab 11/17/21 [Rx Last Taken Unknown] ondansetron 8 mg disintegrating tablet 8 mg PO Q8HP PRN #30 tab.rapdis 11/17/21 [Rx Last Taken Unknown] COURSE Hospital Course Hospital course: Mr. Ruiz is a 41 year old M history of type 2 diabetes, chronic pancreatitis, presenting with 3-day history of nausea, vomiting, and diffuse severe sharp abdominal pain. He runs out of insulin for at least 2 weeks. Over the past 3 days, he is committing of nausea, nonbloody nonbilious vomiting, and diffuse, severe, sharp abdominal pain in all quadrants. Due to his symptoms, he could not tolerate much oral intakes. He presented to our ED for further evaluations. Vital signs upon ED presentation were largely within normal limits. Labs significant for a white count of 20.4. ABG with pH 7.01, PCO2 19.5, PO2 76.9, bicarb 4.8. Serum sodium level 126, corrected 149, serum glucose 1064. Serum Cr level 2.4. Beta hydroxybutyrate 9.57. CT abdomen w/o contrast showing simple acute interstitial pancreatitis. 11/16: Anion gap 11. Serum bicarb 21. Blood glucose 209. c/o nausea. c/o 8/10 diffuse constant sharp abdominal pain. Still on insulin drip and D5 1/2NS w/ KCL IV fluid. Still NPO. Will transition to SQ insulin therapy now that the anion gap is closed. 11/17: Reached clinical stability. Discharged home with Rx given, and instructed to call PCP office for follow up appointment. All questions were answered prior to patient being physically discharged. Discharge diagnosis: DKA Time Spent with Patient Time attestation: Total time spent providing and/or coordinating discharge services: Time spent: Less than 30 minutes EXAM Constitutional Vitals: Temp Pulse Resp BP Pulse Ox 37.1 C 61 16 108/67 99 11/17/21 08:01 11/17/21 08:35 11/17/21 04:10 11/17/21 08:01 11/17/21 08:35 General appearance: cooperative and no acute distress Head Head exam: Present atraumatic and normocephalic Eye Eye exam: Present EOMI and PERRL ENT ENT exam: Present mucous membranes moist and normal external ear exam; Absent normal exam Additional comments: Poor dental hygiene Neck Neck exam: Present normal inspection; Absent lymphadenopathy, tenderness or thyromegaly Respiratory Respiratory exam: Absent accessory muscle use, respiratory distress or wheezes Cardiovascular Cardiovascular exam: Present normal rate and rhythm; Absent JVD GI/Abdominal GI/Abdominal exam: Present normal bowel sounds and soft; Absent organomegaly or tenderness Rectal Rectal exam: Present deferred Extremities Exam Extremities exam: Present full ROM, normal capillary refill and normal inspection; Absent tenderness Neurological Exam Neurological exam: Present alert, CN II-XII intact and oriented X3; Absent motor sensory deficit Psychiatric Psychiatric exam: Present normal affect and normal mood; Absent anxious or depressed Skin Skin exam: Present dry and intact Discharge Data Data Completed and Pending Labs on day of discharge: Labs from last 24 hours 11/17/21 11/17/21 11/16/21 05:08 05:08 20:00 WBC 5.4 RBC 3.96 L Hgb 11.4 L Hct 33.3 L MCV 84.1 MCH 28.8 MCHC 34.2 RDW 12.8 Plt Count 96 L MPV 9.8 Neut % (Auto) 77.4 Lymph % (Auto) 17.8 [place] % (Auto) 4.2 Eos % (Auto) 0.4 Baso % (Auto) 0.2 Lymph # (Auto) 0.97 L [place] # (Auto) 0.23 Eos # (Auto) 0.02 Baso # (Auto) 0.01 Absolute Neutrophils 4.21 Sodium 134 134 Potassium 3.9 3.9 Chloride 103 103 Carbon Dioxide 24 22 Anion Gap 7.0 L 9.0 BUN 9 15 Creatinine 0.7 0.9 GFR Calculation 117 105 Glucose 251 H 279 H Calcium 7.6 L 8.4 L Phosphorus 1.1 L Magnesium 1.9 Total Bilirubin 0.2 AST 17 ALT 12 Alkaline Phosphatase 83 Total Protein 5.0 L Albumin 2.8 L Globulin 2.2 Albumin/Globulin Ratio 1.3 11/16/21 08:09 WBC RBC Hgb Hct MCV MCH MCHC RDW Plt Count MPV Neut % (Auto) Lymph % (Auto) [place] % (Auto) Eos % (Auto) Baso % (Auto) Lymph # (Auto) [place] # (Auto) Eos # (Auto) Baso # (Auto) Absolute Neutrophils Sodium 144 Potassium 3.7 Chloride 112 H Carbon Dioxide 23 Anion Gap 9.0 BUN 29 H Creatinine 1.0 GFR Calculation 93 Glucose 150 H Calcium 8.2 L Phosphorus Magnesium Total Bilirubin AST ALT Alkaline Phosphatase Total Protein Albumin Globulin Albumin/Globulin Ratio Preliminary micro results at discharge 11/15/21 20:29 Blood Culture - Preliminary Blood 11/15/21 20:17 Blood Culture - Preliminary Blood Discharge Plan Patient/Caregiver Discharge Instructions Activity: increase activity as tolerated Diet: Consistent Carbohydrate Instructions: Diabetes Mellitus Type 2 in Adults, 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) Prescriptions: Continued potassium, sodium phosphates 1 PACKET packet 1 packet PO BID Qty: 10 0RF metformin 500 mg tablet 500 mg PO BID 30 Days Qty: 60 0RF hydrocodone-acetaminophen 10-325 mg Tablet 1 tab PO Q4-6HP PRN (Reason: Pain (Scale Score 1-3)) Qty: 10 0RF ondansetron 8 MG tablet,disintegrating 8 mg PO Q8HP PRN (Reason: Nausea) Qty: 30 0RF insulin aspart U-100 [Novolog U-100 Insulin aspart] 100 UNIT/ML solution See Protocol unit SQ ACHS 30 Days Qty: 10 0RF Protocol: Insulin Sliding Scale, Med Condition: HUMALOG/NOVALOG SC SLIDING Dose/Route: SCALE Condition: FSBS < 70 Dose/Route: Give 4 Oz juice, or 15gm oral Instruction: Glucose, or 25ml D50W IV if Dose/Route: unable to take PO. Recheck in Instruction: 15 min and repeat if FSBS < 70 Condition: FSBS 71-140 Dose/Route: NO COVERAGE Condition: FSBS 141-170 Dose/Route: 2 UNITS Condition: FSBS 171-200 Dose/Route: 4 UNITS Condition: FSBS 201-250 Dose/Route: 6 UNITS Condition: FSBS 251-300 Dose/Route: 8 UNITS Condition: FSBS 301-350 Dose/Route: 10 UNITS Condition: FSBS 351-400 Dose/Route: 12 UNITS Condition: FSBS > 400 Dose/Route: 14 UNITS; REPEAT Q2H X2 Instruction: CONTINUE FOLLOWING SLIDING Condition: SCALE; IF STILL > 400; CALL Dose/Route: PHYSICIAN Rx Instructions: per sliding scale Changed Lantus U-100 Insulin 1 UNIT/0.01 ML solution 12 unit subcut DAILY Qty: 10 0RF Creon 1 EACH capsule,delayed release(DR/EC) 2 cap PO TID Qty: 30 0RF Follow Up Plan Follow up with: Provider,Other [Primary Care Provider] - Patient Disposition: Home, Self-Care Prognosis: Critical Rehab Potential: Good I certify that the patient requires SNF services: No Overall status at discharge: patient is back to baseline Discharge Orders: Discharge Order (Routine); Ordered 11/17/21 Ordered By: Luis Loomis
[2021-11-17] MEDS: LIPASE/PROTEASE/AMYLASE 1 CAP CAPSULE PO SCH (09:42)
[2021-11-17] MEDS: DOCUSATE SODIUM 100 MG CAPSULE PO SCH (09:46)
[2021-11-17] MEDS ORDERED: HYDROmorphone 0.5 MG/0.5 ML SYRINGE IV PRN (10:37)
== END 2021-11-17 11:47 | disposition home or self-care (01) | DRG 637 ==
LOC: ED 15:10 → ICU 20:00
PROVIDERS: ADMIT Internal Medicine; ATTEND Internal Medicine

== ENCOUNTER 2021-12-04 16:32 | Observation (INO) ==
--- NOTE | 2021-12-04 18:41 | Emergency Department Note ---
HPI General Chief complaint: Blood Sugar Problem Stated complaint: blood sugar problem Time Seen by Provider: 12/04/21 16:55 Source: patient Mode of arrival: ambulatory Limitations: no limitations History of Present Illness HPI Narrative: Narrative: 41-year-old male with a history of hyperkalemia, chronic pancreatitis insulin- dependent diabetes and poor diabetes management presents the ER to be evaluated for low blood sugar. He was seen at the [facility] and his blood sugar was in the 40s where he was given glucagon and dextrose and his blood sugar came up into the 80s. He states he thinks he took his long-acting insulin possibly a double or triple dose he is not sure how much he took or when he took it but it was likely this afternoon around 2:30. He says he normally does his insulin without any issue. This is the first time he had a problem with it. He says he generally feels okay right now. He is not complaining of anything else at this time. He denies fever, chills, bodies, chest pain, chest pressure, nausea or vomiting. Related Data Previous Rx's Medication Instructions Recorded potassium, sodium phosphates 280 1 packet PO BID #10 packet 09/30/18 mg-160 mg-250 mg oral powder packet hydrocodone 10 mg-acetaminophen 1 tab PO Q4-6HP PRN #10 tab 11/17/21 325 mg tablet insulin aspart U-100 100 unit/mL See Protocol SQ ACHS 30 Days #10 ml 11/17/21 subcutaneous solution (Novolog U-100 Insulin aspart) insulin glargine 100 unit/mL 12 unit (0.12 mL) SUBCUT DAILY #10 11/17/21 subcutaneous solution (Lantus ml U-100 Insulin) [id number]-gbyzcmio-zsvmiuz 2 cap PO TID #30 cap 11/17/21 12,000-38,000-60,000 unit capsule,delayed rel (Creon) metformin 500 mg tablet 500 mg PO BID 30 Days #60 tab 11/17/21 ondansetron 8 mg disintegrating 8 mg PO Q8HP PRN #30 tab.rapdis 11/17/21 tablet Allergies Allergy/AdvReac Type Severity Reaction Status Date / Time No Known Drug Allergies Allergy Verified 12/04/21 16:39 Review of Systems ROS ROS Narrative: Narrative: All systems ED: reviewed and negative except as stated. PFSH Narrative Patient History Narrative: Narrative: Medical/Surgical/Family History All Active Problems (Updated 12/04/21 @ 21:07 by Brayden Mares PA-C) Hypoglycemia (Acute) Stage 2 acute kidney injury (Acute) Hyperkalemia (Acute) Acute on chronic pancreatitis (Acute) Contusion of hip, right (Acute) Felon of finger of right hand (Acute) Hyperglycemia (Acute) Hyperosmolar hyperglycemic state (HHS) (Acute) ORLIN (acute kidney injury) (Acute) Leukocytosis (Acute) Chronic pancreatitis (Chronic) Other specified diabetes mellitus without complications (Chronic) Hypertension (Chronic) Exocrine pancreatic insufficiency (Chronic) Medical History Chronic pancreatitis DKA (diabetic ketoacidoses) Exocrine pancreatic insufficiency Hypertension Other specified diabetes mellitus without complications Social History Smoking Status: Never smoker Exam Narrative Narrative: Narrative: Gen: No acute distress Eyes: PERRL, no conjunctival injection , and symmetrical lids. Sclerae non icteric HENMT: Normocephalic Atraumatic head, external nose and ears. Moist MM. Poor decaying dentition CVS: +S1/S2, No murmurs or gallops. Radial pulses 2+ and equal bilat. No swelling RESP: Unlabored respiratory effort . Clear to auscultation bilaterally (CTAB). No noted wheezes rales or ronchi. GI: Nontender/Nondistended (NTND), No focal tenderness MSK: Extremities w/o deformity or ttp. No cyanosis or clubbing. Skin: Warm, Dry . No rashes or lesions . Cap refill less than 2. Psych: Awake, Alert, & Oriented (AAO) x3. Appropriate mood and affect . General Limitations: no limitations Course Vital Signs Vital signs: Vital Signs Temperature 96.7 F L 12/04/21 16:33 Pulse Rate 73 12/04/21 16:33 Respiratory Rate 16 12/04/21 16:33 Blood Pressure 116/73 12/04/21 16:33 Pulse Oximetry (%) 96 12/04/21 16:33 Temperature 96.7 F L 12/04/21 16:33 Pulse Rate 62 12/04/21 20:57 Respiratory Rate 16 12/04/21 16:33 Blood Pressure 107/73 12/04/21 20:57 Pulse Oximetry (%) 100 12/04/21 20:57 MDM MDM Narrative Medical decision making narrative: Narrative: Patient has been observed and had multiple blood glucose sticks in the ER. His blood sugar was stable In the high 70s and he was given a sandwich and after an hour his blood sugar dropped in the low 60s. It is unknown how much long-acting insulin he took and at what time. His renal function will be checked with a kpokb-dz-njby Chem-8 to ensure renal clearance. He was also given additional orange juice to see if his blood sugar would stabilize. He says he currently feels well and is back to baseline. Chem-8: Blood glucose of 45 renal function is normal Repeat blood sugar: Back down into the high 40s Patient's blood sugar has been labile even after food and juice its been coming up into the high 70s and then dropping back into the 40s and the patient become symptomatic again. This is been ongoing for several hours at this time. Dr. Borden hospitalist was consulted and there is a bed available. I am waiting for his acceptance and a Covid testing is pending at this time. Covid: Pending Dr. Borden said he would be down to see the patient and accepted admission at this time. Approximately 2043 Lab Data Labs: Lab Results 12/04/21 Range/Units 18:48 POC Hct 36 L (41-55) % POC Sodium 138 (133-145) mEq/L POC Potassium 3.3 (3.3-5.1) mEql/L POC Chloride 97 (96-108) mEq/L POC Total CO2 28 (22-30) mmol/L POC BUN 4 L (6-20) mg/dL POC Creatinine 0.4 L (0.6-1.2) mg/dL POC Glucose 45 L (70-105) mg/dL POC WB Ioniz Calcium 1.19 (1.16-1.32) mmEq/L Discharge Plan Patient/Caregiver Discharge Instructions Pt seen by VEIN PUMPER/PA only: Yes Clinical Impression: Hypoglycemia Activity: increase activity as tolerated Patient Disposition: Xfer As Inpt ([facility]) Follow up with: Adolfo Boyd DO [Primary Care Provider] - Prescriptions: Continued potassium, sodium phosphates 1 PACKET packet 1 packet PO BID Qty: 10 0RF metformin 500 mg tablet 500 mg PO BID 30 Days Qty: 60 0RF Lantus U-100 Insulin 1 UNIT/0.01 ML solution 12 unit subcut DAILY Qty: 10 0RF hydrocodone-acetaminophen 10-325 mg Tablet 1 tab PO Q4-6HP PRN (Reason: Pain (Scale Score 1-3)) Qty: 10 0RF ondansetron 8 MG tablet,disintegrating 8 mg PO Q8HP PRN (Reason: Nausea) Qty: 30 0RF insulin aspart U-100 [Novolog U-100 Insulin aspart] 100 UNIT/ML solution See Protocol unit SQ ACHS 30 Days Qty: 10 0RF Protocol: Insulin Sliding Scale, Med Condition: HUMALOG/NOVALOG SC SLIDING Dose/Route: SCALE Condition: FSBS < 70 Dose/Route: Give 4 Oz juice, or 15gm oral Instruction: Glucose, or 25ml D50W IV if Dose/Route: unable to take PO. Recheck in Instruction: 15 min and repeat if FSBS < 70 Condition: FSBS 71-140 Dose/Route: NO COVERAGE Condition: FSBS 141-170 Dose/Route: 2 UNITS Condition: FSBS 171-200 Dose/Route: 4 UNITS Condition: FSBS 201-250 Dose/Route: 6 UNITS Condition: FSBS 251-300 Dose/Route: 8 UNITS Condition: FSBS 301-350 Dose/Route: 10 UNITS Condition: FSBS 351-400 Dose/Route: 12 UNITS Condition: FSBS > 400 Dose/Route: 14 UNITS; REPEAT Q2H X2 Instruction: CONTINUE FOLLOWING SLIDING Condition: SCALE; IF STILL > 400; CALL Dose/Route: PHYSICIAN Rx Instructions: per sliding scale Creon 1 EACH capsule,delayed release(DR/EC) 2 cap PO TID Qty: 30 0RF
[2021-12-04 18:58] LABS: POC Blood Urea Nitrogen 4 mg/dL (6-20); POC CO2 28 mmol/L (22-30); POC Calcium, Ionized 1.19 mmEq/L (1.16-1.32); POC Chloride 97 mEq/L (96-108); POC Creatinine 0.4 mg/dL (0.6-1.2); POC Glucose, Random 45 mg/dL (70-105); POC Hematocrit 36 % (41-55); POC Potassium 3.3 mEql/L (3.3-5.1); POC Sodium 138 mEq/L (133-145)
[2021-12-04] MEDS ORDERED: ONDANSETRON 4 MG/2 ML VIAL IV ONE (19:41)
[2021-12-04] MEDS: DEXTROSE 5%-NS 1,000 ML IV SCH ×4 (20:02→22:31)
[2021-12-04] MEDS ORDERED: DEXTROSE 31 GM ORAL.SUSP PO PRN (20:52)
[2021-12-04] MEDS ORDERED: MAGNESIUM SULFATE 2 GM/50 ML BAG IV PRN (20:52)
[2021-12-04] MEDS ORDERED: ONDANSETRON 4 MG/2 ML VIAL IV PRN (20:52)
[2021-12-04] MEDS ORDERED: POTASSIUM CHLORIDE 40 MEQ in DEXTROSE 5% IN WATER 500 ML IV PRN (20:52)
[2021-12-04] MEDS ORDERED: IPRATROPIUM/ALBUTEROL 3 ML AMPUL.NEB NEB PRN (20:52)
[2021-12-04] MEDS ORDERED: DEXTROSE 50% 50 ML VIAL IV PRN (20:52)
[2021-12-04] MEDS ORDERED: METOCLOPRAMIDE 10 MG/2 ML VIAL IV PRN (20:52)
[2021-12-04] MEDS ORDERED: ACETAMINOPHEN 325 MG TABLET PO PRN (20:52)
[2021-12-04] MEDS ORDERED: POTASSIUM CHLORIDE 20 MEQ TABLET PO PRN ×2 (20:52)
--- NOTE | 2021-12-04 20:52 | Internal Med History&Physical ---
HPI History of Present Illness Patient information: Note initiated : 12/04/21 at 8:49 pm Service Date, if different from initiated Date: [] Patient: Tashi Ruiz a 41 y/o M admitted on for blood sugar problem. Chief Complaint: [] History of present illness: Mr. Ruiz is a 41 year old M Patient with history of chronic pancreatitis and diabetes who was seen in [facility] clinic and found a blood glucose in the 40s. Sent to the ER. In the ER he was given orange juice and sandwich sugar seem to stabilize but then on recheck sugars were back down to 40s became symptomatic. Been in the ER for 4 hours and still requiring a dextrose drip. She had some nausea. No chest pain or shortness of breath. Patient takes long-acting as well as short-acting. Patient feels a take too much of his short acting, unsure about his long-acting. Review of Systems: denies headache/fever/chills/vomiting/chest or abdominal pain/cough/dyspnea/diarrhea. Otherwise see above. PFSH PFSH All Active Problems Stage 2 acute kidney injury (Acute) Hyperkalemia (Acute) Acute on chronic pancreatitis (Acute) Contusion of hip, right (Acute) Felon of finger of right hand (Acute) Hyperglycemia (Acute) Hyperosmolar hyperglycemic state (HHS) (Acute) ORLIN (acute kidney injury) (Acute) Leukocytosis (Acute) Chronic pancreatitis (Chronic) Other specified diabetes mellitus without complications (Chronic) Hypertension (Chronic) Exocrine pancreatic insufficiency (Chronic) Medical History Chronic pancreatitis DKA (diabetic ketoacidoses) Exocrine pancreatic insufficiency Hypertension Other specified diabetes mellitus without complications MEDS/ALLERGIES Home Medications and Allergies Home Medications Medication Instructions Recorded Confirmed Type potassium, sodium phosphates 280 1 packet PO BID #10 packet 09/30/18 11/16/21 Rx mg-160 mg-250 mg oral powder packet hydrocodone 10 mg-acetaminophen 1 tab PO Q4-6HP PRN #10 tab 11/17/21 Rx 325 mg tablet insulin aspart U-100 100 unit/mL See Protocol SQ ACHS 30 Days #10 ml 11/17/21 Rx subcutaneous solution (Novolog U-100 Insulin aspart) insulin glargine 100 unit/mL 12 unit (0.12 mL) SUBCUT DAILY #10 11/17/21 Rx subcutaneous solution (Lantus ml U-100 Insulin) [id number]-ctqhdker-xlmrowd 2 cap PO TID #30 cap 11/17/21 Rx 12,000-38,000-60,000 unit capsule,delayed rel (Creon) metformin 500 mg tablet 500 mg PO BID 30 Days #60 tab 11/17/21 Rx ondansetron 8 mg disintegrating 8 mg PO Q8HP PRN #30 tab.rapdis 11/17/21 Rx tablet Allergies Allergy/AdvReac Type Severity Reaction Status Date / Time No Known Drug Allergies Allergy Verified 12/04/21 16:39 EXAM Constitutional Vitals: Temp Pulse Resp BP Pulse Ox 96.7 F L 69 16 106/65 100 12/04/21 16:33 12/04/21 20:27 12/04/21 16:33 12/04/21 20:27 12/04/21 20:27 Exam: General: Alert, Awake, No acute Distress Eyes/N/T: EOMI, PERRL, MM Head/Neck: neck supple, normocephalic atraumatic CV: RRR, No murmurs, normal s1/s2 Pulm: Clear b/l, no wheezing/rhonchi/rales Abd: soft, nontender, +BS x4 Ext: no clubbing/cyanosis/edema Neuro: Alert, no focal deficits, moves all extremities, CN 2-12 grossly intact, symmetrical strength b/l upper/lower, sensations intact b/l upper/lower Skin: warm/dry DATA Data Completed and Pending Labs: Labs from last 24 hours 12/04/21 18:48 POC Hct 36 L POC Sodium 138 POC Potassium 3.3 POC Chloride 97 POC Total CO2 28 POC BUN 4 L POC Creatinine 0.4 L POC Glucose 45 L POC WB Ioniz Calcium 1.19 A/P Narrative A/P Narrative: A: *Hypoglycemia: Unintentional medication overdose *DM: *Chronic pancreatitis: P: -Dextrose drip -Frequent Accu-Cheks - -ppx: Lovenox Time Spent With Patient Time: Total time spent is greater than 50% in coordination of care (as documented) at patient's floor/unit and/or counseling patient:
--- NOTE | 2021-12-04 21:04 | Discharge Summary ---
Discharge Provider Provider Patient information: Note initiated : 12/04/21 at 9:03 pm Service Date, if different from initiated Date: [] Patient: Tashi Ruiz 41 y/o M admitted on for blood sugar problem. Chief Complaint: [] Discharge date: 12/05/21 Primary care physician: Adolfo Byod Discharge Meds Discharge Medications Home Medications potassium, sodium phosphates 280 mg-160 mg-250 mg oral powder packet 1 packet PO BID #10 packet 09/30/18 [Rx Confirmed 12/05/21 Last Taken Unknown] hydrocodone 10 mg-acetaminophen 325 mg tablet 1 tab PO Q4-6HP PRN #10 tab 11/17/21 [Rx Confirmed 12/05/21 Last Taken Unknown] insulin aspart U-100 100 unit/mL subcutaneous solution (Novolog U-100 Insulin aspart) See Protocol SQ ACHS 30 Days #10 ml 11/17/21 [Rx Confirmed 12/05/21 Last Taken Unknown] insulin glargine 100 unit/mL subcutaneous solution (Lantus U-100 Insulin) 12 unit (0.12 mL) SUBCUT DAILY #10 ml 11/17/21 [Rx Confirmed 12/05/21 Last Taken Unknown] vuldsa-xiulpgqp-fsmwhso 12,000-38,000-60,000 unit capsule,delayed rel (Creon) 2 cap PO TID #30 cap 11/17/21 [Rx Confirmed 12/05/21 Last Taken Unknown] metformin 500 mg tablet 500 mg PO BID 30 Days #60 tab 11/17/21 [Rx Confirmed 12/05/21 Last Taken Unknown] ondansetron 8 mg disintegrating tablet 8 mg PO Q8HP PRN #30 tab.rapdis 11/17/21 [Rx Confirmed 12/05/21 Last Taken Unknown] COURSE Hospital Course Hospital course: History of present illness: Mr. Ruiz is a 41 year old M Patient with history of chronic pancreatitis and diabetes who was seen in [facility] clinic and found a blood glucose in the 40s. Sent to the ER. In the ER he was given orange juice and sandwich sugar seem to stabilize but then on recheck sugars were back down to 40s became symptomatic. Been in the ER for 4 hours and still requiring a dextrose drip. She had some nausea. No chest pain or shortness of breath. Patient takes long-acting as well as short-acting. Patient feels a take too much of his short acting, unsure about his long-acting. 1/5 Has been off the dextrose drip since scene shifter. Glucose stable. Stable for discharge A: *Hypoglycemia: Unintentional medication overdose *DM: *Chronic pancreatitis: Discharge diagnosis: Hypoglycemia unintentional drug overdose Secondary discharge diagnosis: Diabetes chronic pancreatitis Time Spent with Patient Time attestation: Total time spent providing and/or coordinating discharge services: Time spent: Greater than 30 minutes EXAM Constitutional Vitals: Temp Pulse Resp BP Pulse Ox 96.7 F L 62 16 107/73 100 12/04/21 16:33 12/04/21 20:57 12/04/21 16:33 12/04/21 20:57 12/04/21 20:57 Discharge Data Data Completed and Pending Labs on day of discharge: Labs from last 24 hours 12/04/21 18:48 POC Hct 36 L POC Sodium 138 POC Potassium 3.3 POC Chloride 97 POC Total CO2 28 POC BUN 4 L POC Creatinine 0.4 L POC Glucose 45 L POC WB Ioniz Calcium 1.19 Discharge Plan Patient/Caregiver Discharge Instructions Activity: increase activity as tolerated Prescriptions: Continued potassium, sodium phosphates 1 PACKET packet 1 packet PO BID Qty: 10 0RF metformin 500 mg tablet 500 mg PO BID 30 Days Qty: 60 0RF Lantus U-100 Insulin 1 UNIT/0.01 ML solution 12 unit subcut DAILY Qty: 10 0RF hydrocodone-acetaminophen 10-325 mg Tablet 1 tab PO Q4-6HP PRN (Reason: Pain (Scale Score 1-3)) Qty: 10 0RF ondansetron 8 MG tablet,disintegrating 8 mg PO Q8HP PRN (Reason: Nausea) Qty: 30 0RF insulin aspart U-100 [Novolog U-100 Insulin aspart] 100 UNIT/ML solution See Protocol unit SQ ACHS 30 Days Qty: 10 0RF Protocol: Insulin Sliding Scale, Med Condition: HUMALOG/NOVALOG SC SLIDING Dose/Route: SCALE Condition: FSBS < 70 Dose/Route: Give 4 Oz juice, or 15gm oral Instruction: Glucose, or 25ml D50W IV if Dose/Route: unable to take PO. Recheck in Instruction: 15 min and repeat if FSBS < 70 Condition: FSBS 71-140 Dose/Route: NO COVERAGE Condition: FSBS 141-170 Dose/Route: 2 UNITS Condition: FSBS 171-200 Dose/Route: 4 UNITS Condition: FSBS 201-250 Dose/Route: 6 UNITS Condition: FSBS 251-300 Dose/Route: 8 UNITS Condition: FSBS 301-350 Dose/Route: 10 UNITS Condition: FSBS 351-400 Dose/Route: 12 UNITS Condition: FSBS > 400 Dose/Route: 14 UNITS; REPEAT Q2H X2 Instruction: CONTINUE FOLLOWING SLIDING Condition: SCALE; IF STILL > 400; CALL Dose/Route: PHYSICIAN Rx Instructions: per sliding scale Creon 1 EACH capsule,delayed release(DR/EC) 2 cap PO TID Qty: 30 0RF Follow Up Plan Follow up with: Adolfo Boyd DO [Primary Care Provider] - 12/10/21 1:00 pm Patient Disposition: Home, Self-Care Prognosis: Fair Overall status at discharge: patient is back to baseline Discharge Orders: Discharge Order (Routine); Ordered 12/05/21 Ordered By: Theo Borden
[2021-12-04] MEDS: 0.9 % SODIUM CHLORIDE 10 ML SYRINGE IV SCH (22:18)
[2021-12-04] MEDS: INSULIN LISPRO 1 UNIT/0.01 ML UNIT SQ SCH (22:19)
[2021-12-05] MEDS: DEXTROSE 5%-NS 1,000 ML IV SCH ×2 (04:39→10:31)
[2021-12-05] MEDS: 0.9 % SODIUM CHLORIDE 10 ML SYRINGE IV SCH (05:00)
[2021-12-05] MEDS ORDERED: HYDROmorphone 0.5 MG/0.5 ML SYRINGE IV ONE ×2 (07:35→08:43)
[2021-12-05] MEDS: INSULIN LISPRO 1 UNIT/0.01 ML UNIT SQ SCH ×3 (08:10→11:43)
[2021-12-05] MEDS: HYDROcodone/APAP 10/325MG TABLET PO PRN ×2 (08:53→12:55)
[2021-12-05] MEDS ORDERED: ENOXAPARIN 40 MG/0.4 ML SYRINGE SQ SCH (09:00)
[2021-12-05] MEDS ORDERED: AZITHROMYCIN 250 MG TABLET PO ONE (10:55)
--- NOTE | 2021-12-06 12:05 | EKG ---
[facility] Test Date: 2021-12-04 Pat Name: Tashi Ruiz Department: ED Room: Gender: Male [place]: sb : 1980 Requested By: Theo Borden Order Number: [id number] Reading MD: Pietro Lynn M.D. Measurements Intervals [place] Rate: 67 P: 8 GA: 113 QRS: 73 QRSD: 92 T: 42 QT: 441 QTc: 466 Interpretive Statements Sinus rhythm Borderline short GA interval J point elevation, likely normal variant. Electronically Signed On 12-06-2021 12:05:20 PST by Pietro Lynn M.D. /store/M0/[id number]
== END 2021-12-05 13:30 | disposition home or self-care (01) ==
LOC: ED 16:32 → ICU 16:32
PROVIDERS: ADMIT Internal Medicine; ATTEND Internal Medicine